=== PATIENT | female | born 1975 ===

== ENCOUNTER → 2019-11-03 13:06 | Outpatient (BNVA) | payer OTHER, SELFPAY | PROVIDERS: Visit Provider Obstetrics & Gynecology | DX: N92.0 Excessive and frequent menstruation with regular cycle (principal) | CPT/HCPCS: 76830 ==

== ENCOUNTER → 2019-11-04 10:34 | Outpatient (BNVA) | payer OTHER, SELFPAY | PROVIDERS: Visit Provider Obstetrics & Gynecology | DX: N92.0 Excessive and frequent menstruation with regular cycle (principal) | CPT/HCPCS: 88305 ==

== ENCOUNTER 2020-03-28 19:01 | Emergency (ER) | payer OTHER, SELFPAY ==
[2020-03-28 19:07] VITALS: BP 144/85; PULSE 61; RESP 18; TEMP 36.7; O2SAT 96; BMI 38.4
--- NOTE | 2020-03-28 19:09 | ECG_ITS ---
[facility] Test Date: 2020-03-28 Pat Name: Ana Lilia Gonzalez Department: Room: Gender: Female Community Development Technician: : 1975 Requested By: Ann-Marie Varela Order Number: [id number] Haley MD: Mor Chavez M.D. Measurements Intervals [place] Rate: 64 P: 34 SD: 129 QRS: 37 QRSD: 103 T: 18 QT: 382 QTc: 395 Interpretive Statements SINUS RHYTHM No previous ECG available for comparison Electronically Signed On 03-29-2020 20:19:10 CDT by Mor Chavez M.D. [id number]
--- NOTE | 2020-03-28 19:25 | ED_ITS ---
HPI - Head Injury General: Chief complaint: Head Injury Stated complaint: loc Time Seen by Provider: 03/28/20 19:25 History of Present Illness: HPI Narrative: Patient is a 44-year-old female comes to the ED with a head injury. Patient says she was washing dishes and lifted her head up and her head hit the cabinet. She describes feeling out of it for a few minutes but did not have any loss of consciousness. She also described feeling off balance after she hit her head. Patient took Tylenol before coming to the ED. Endorses headache. Associated symptoms: Deny nausea, neck pain or vomiting Review of Systems Const: Denies: fever(s), chills or fatigue Eyes: Denies: change in vision or eye discomfort ENMT: Denies: throat pain, odynophagia, nasal discharge or nasal congestion Card: Denies: chest pain, palpitations, edema, swelling of feet/ankles, dyspnea on exertion or orthopnea Resp: Denies: dyspnea, productive cough or non-productive cough GI: Denies: abdominal pain, nausea, vomiting, diarrhea, constipation or h ematochezia : Denies: flank pain, dysuria or hematuria Musc: Denies: neck pain, back pain or extremity swelling Skin/Breast: Denies: rash or new lesions Neuro: Reports: headache(s) and dizziness (episodic after injury, but has since resolved.); Denies: numbness in extremities or weakness in extremities [facility] Female Reproductive History: Date of last menstrual period: 02/28/20 Physical Exam Const: COMMON NORMALS: no acute distress, patient oriented x3, healthy appearing and alert GENERAL APPEARANCE: cooperative and comfortable HENMT: COMMON NORMALS: normocephalic HEAD & SCALP: normocephalic; no Esquivel's sign and no raccoon eyes FACE & SINUS: normal facial exam; no ecchymosis and no edema MOUTH: Normal oral and palatal mucosa present THROAT: posterior oropharynx normal and uvula midline Eye: COMMON NORMALS: Equal, round and reactive pupils present, EOMs intact bilaterally, conjunctivae normal and normal visual mooney by confrontation PERIORBITAL: periorbital findings normal CONJUNCTIVA: Yes conjunctivae normal PUPIL: Yes Equal, round and reactive pupils present Neck/C-Spine: COMMON NORMALS: supple GENERAL: Yes normal visual inspection Resp: COMMON NORMALS: normal respiratory effort, No retractions, No use of accessory muscles and clear to auscultation bilaterally AUSCULTATION: clear to auscultation bilaterally Cardio: COMMON NORMALS: regular rate, regular rhythm, S1 normal heart sound present, S2 normal heart sound present, No gallops present (Cardio), No clicks present (Cardio), No murmurs present (Cardio) and Peripheral pulses 2+ throughout RATE: regular rate RHYTHM: regular rhythm HEART SOUNDS: S1 normal heart sound present and S2 normal heart sound present PERIPHERAL PULSES: Peripheral pulses 2+ throughout GI: COMMON NORMALS: Normal to inspection, nondistended, normoactive bowel sounds present, Soft to palpation, non-tender and no masses PALPATION: Yes Soft to palpation : COMMON NORMALS: Yes no CVA tenderness BLADDER/KIDNEY EXAM: Yes no CVA tenderness Back/Pelvis: COMMON NORMALS: no CVA tenderness Extremity: COMMON NORMALS: normal to inspection Neuro: COMMON NORMALS: patient oriented x3, CN's II-XII intact bilaterally, moves all extremities, no focal motor deficits and no sensory deficits noted SENSORIUM/ORIENTATION: Yes alert SENSORY EXAM: Yes extremities (intact) MOTOR EXAM: 5/5 motor strength present throughout Skin: COMMON NORMALS: no rashes or lesions noted GENERAL SKIN EXAM: no rashes or lesions noted and dry skin Course Vital Signs: Vital signs: Vital Signs Temperature 98.1 F 03/28/20 19:07 Pulse Rate 61 03/28/20 19:07 Respiratory Rate 18 03/28/20 19:07 Blood Pressure 144/85 03/28/20 19:07 Pulse Oximetry 96 03/28/20 19:07 MDM - Head Injury MDM Narrative: Medical decision making narrative: Patient is a 44-year-old female who comes to the ED after head injury. Patient hit head on cabinet denies any loss of consciousness but but felt off balance for a little while after injury. Endorses a headache. Physical and neuro exam is completely normal patient has no neurological deficits. CT of the head was performed and showed no acute findings. Patient was discharged and told to follow-up with PCP in 7 to 10 days for reevaluation. Return to ED precautions given. Take Tylenol or ibuprofen for any headache or pain. Patient understood and agreed with plan. Imaging Data^: CT Head: Attestation: I personally reviewed and interpreted this imaging study as follows: Radiologist's impression: [facility] [address] [place] [address] CT Scan Report Signed Patient: Ana Lilia Gonzalez Unit #: [id number] : 1975 Age/Sex: 44 / F ADM Date: 03/28/20 Loc: ER Room/Bed: Attending Dr: Ordering Provider/Ordering MD: Juan Manuel Curry Date of Service: 03/28/20 Procedure(s): CT head wo con* [id number] Accession Number(s): [id number] Report Number: [id number] PROCEDURE INFORMATION: Exam: CT Head Without Contrast Exam date and time: 03/28/2020 8:02 PM Age: 44 years old Clinical indication: Pain; Dizziness; Headache; Patient HX: Hit head on a desk; Additional info: Head injury TECHNIQUE: Imaging protocol: Computed tomography of the head without contrast. Radiation optimization: All CT scans at this facility use at least one of these dose optimization techniques: automated exposure control; mA and/or kV adjustment per patient size (includes targeted exams where dose is matched to clinical indication); or iterative reconstruction. COMPARISON: No relevant prior studies available. RADIATION DOSE METRICS: Total DLP (mGy-cm): 901.44 FINDINGS: Brain: Normal. No hemorrhage. Unremarkable white matter. No mass effect. Ventricles: Normal. No ventriculomegaly. Bones/joints: Unremarkable. No acute fracture. Sinuses: Visualized sinuses are unremarkable. No fluid levels. Mastoid air cells: Visualized mastoid air cells are well aerated. Soft tissues: Unremarkable. CT/CT head wo con* [id number] IMPRESSION: No acute intracranial abnormality. Radiation Dose CTDIVOL = (mGy): DLP = 901.44 (mGy-cm) Dictated By: Reno Duval Signed By: Reno Duval Signed Date/Time: 2048 DD/ 46 Discharge Plan Discharge Patient Disposition: Home Clinical Impression: Head injury, acute, without loss of consciousness Qualifiers: Encounter type: initial encounter Qualified Code(s): S09.90XA - Unspecified injury of head, initial encounter Condition: Stable Prescriptions: No Action Junel FE 1.5/30 (28) 1.5 mg-30 mcg (21)/75 mg (7) tablet 1 tab PO DAILY RF: 0 chlorzoxazone 500 mg tablet 500 mg PO TID RF: 0 iron 325 mg (65 mg iron) Tablet 325 mg PO DAILY RF: 0 metoprolol succinate 25 mg tablet extended release 24 hr 25 mg PO BID RF: 0 naproxen 500 mg tablet 500 mg PO BID RF: 0 topiramate 50 mg tablet 50 mg PO BEDTIME RF: 0 Discharge Orders: Discharge Order (Routine); Ordered 03/28/20 Ordered By: Juan Manuel Curry Discharge Diet: Regular Discharge Activity: Increase activity as tolerated Patient Instructions: Minor Head Injury (ED) Activity Restrictions/Additional Instructions: Follow-up with medical provider as directed in 7-10 days. Take Tylenol or ibuprofen for any pain or headaches. You can apply cold pack on left eye to help with swelling as needed. Return to the ER or your medical provider if condition worsens. Please read and understand discharge instructions. If any questions, please ask. Stand Alone Forms: Work/School Release Discharge Date/Time: 03/28/20 21:37 Coding Level of Care Code ED Conduit Reamer Operator for Dalton Fwd Exam Comprehensive
--- NOTE | 2020-03-28 19:33 | CTR_ITS ---
PROCEDURE INFORMATION: Exam: CT Head Without Contrast Exam date and time: 03/28/2020 8:02 PM Age: 44 years old Clinical indication: Pain; Dizziness; Headache; Patient HX: Hit head on a desk; Additional info: Head injury TECHNIQUE: Imaging protocol: Computed tomography of the head without contrast. Radiation optimization: All CT scans at this facility use at least one of these dose optimization techniques: automated exposure control; mA and/or kV adjustment per patient size (includes targeted exams where dose is matched to clinical indication); or iterative reconstruction. COMPARISON: No relevant prior studies available. RADIATION DOSE METRICS: Total DLP (mGy-cm): 901.44 FINDINGS: Brain: Normal. No hemorrhage. Unremarkable white matter. No mass effect. Ventricles: Normal. No ventriculomegaly. Bones/joints: Unremarkable. No acute fracture. Sinuses: Visualized sinuses are unremarkable. No fluid levels. Mastoid air cells: Visualized mastoid air cells are well aerated. Soft tissues: Unremarkable. CT/CT head wo con* [id number] IMPRESSION: No acute intracranial abnormality. Radiation Dose CTDIVOL = (mGy): DLP = 901.44 (mGy-cm)
== END 2020-03-28 21:37 | disposition home or self-care (01) ==
PROVIDERS: Emergency Provider Physician Assistant
DX: S09.8XXA Other specified injuries of head, initial encounter (principal); W22.09XA Striking against other stationary object, initial encounter
CPT/HCPCS: 12345; 70450; 93005; 99281; 99283

== ENCOUNTER 2020-05-12 12:56 | Outpatient (CLI) | payer OTHER, SELFPAY ==
--- NOTE | 2020-05-12 13:02 | XR_ITS ---
WS: [id number] Cervical spine, 3 views, 05/12/2020 Clinical Data: PAIN IN R HAND Comparison: None. Findings: No compression fractures are seen. The disc heights are normal. There is no prevertebral so ft tissue swelling. The odontoid is unremarkable. The soft tissues of the neck and the lung apices ar e normal. XR/XR cervical spine 3V* [id number] Impression: Negative cervical spine.
== END 2020-05-12 12:57 | disposition home or self-care (01) ==
LOC: RAD 12:56
PROVIDERS: Visit Provider Student in an Organized Health Care Education/Training Program
DX: M79.641 Pain in right hand (principal)
CPT/HCPCS: 72040

== ENCOUNTER → 2021-03-23 10:14 | Outpatient (BNVA) | payer OTHER, SELFPAY | PROVIDERS: PCP Nurse Practitioner Family; Visit Provider Obstetrics & Gynecology | DX: N92.0 Excessive and frequent menstruation with regular cycle (principal); Z12.4 Encounter for screening for malignant neoplasm of cervix | CPT/HCPCS: 88175 ==

== ENCOUNTER 2021-05-21 09:53 | Outpatient (CLI) | payer OTHER, SELFPAY ==
--- NOTE | 2021-05-21 10:04 | USCV_ITS ---
Ana Lilia Gonzalez Age: 45 Gender: F : 1975 Exam Date: 05/21/2021 10:32 Ordering Phys: Lilia Tomlinson PRODUCE PRODUCTION TEAM MEMBER Technologist: Exam Location: [facility] Indication: Mitral valve prolapse BP: 148 / 85 HR: 69 Rhythm: Sinus Technical Quality: Adequate MEASUREMENTS (Male / Female) Normal Values 2D ECHO LV Diastolic Diameter PLAX 5.2 cm 4.2 - 5.9 / 3.9 - 5.3 cm LV Systolic Diameter PLAX 2.5 cm IVS Diastolic Thickness 1.1 cm 0.6 - 1.0 / 0.6 - 0.9 cm IVS Systolic Thickness 1.2 cm LVPW Diastolic Thickness 0.9 cm 0.6 - 1.0 / 0.6 - 0.9 cm LVPW Systolic Thickness 1.0 cm LVOT Diameter 2.1 cm LV Ejection Fraction 2D Teich 73.0 % LV Ejection Fraction MOD 2C 74.9 % LV Ejection Fraction 2C AL 74.0 % LA Diameter 2.6 cm LA Width 3.6 cm LA Height 4.0 cm RA Width 3.6 cm RA Height 4.0 cm Aorta at Sinotubular Diameter 2.2 cm DOPPLER AV Peak Velocity 144.0 cm/s LVOT Peak Velocity 115.0 cm/s AV Area Cont Eq vti 3.1 cm squared AV Area Cont Eq pk 2.7 cm squared MV Area PHT 5.0 cm squared Mitral E to A Ratio 1.1 MV E' Velocity 49.0 cm/s Mitral E to MV E' Ratio 10.1 Mitral E to LV E' Lateral Ratio 9.1 Mitral E to LV E' Septal Ratio 11.4 TR Peak Velocity 157.0 cm/s TR Peak Gradient 9.9 mmHg TV Peak E Velocity 95.0 cm/s Right Atrial Pressure 3.0 mmHg Pulmonary Artery Systolic Pressu 12.9 mmHg FINDINGS Left Ventricle Normal left ventricular size, systolic function and wall thickness, with no regional wall motion abnormalities. Left ventricular ejection fraction is estimated at 65-70 %. Normal diastolic function. Right Ventricle Normal right ventricular size and systolic function. Right ventricular systolic pressure 12.9 mmHg. Right Atrium Normal right atrial size. Left Atrium Normal left atrial size. Mitral Valve Thickened mitral valve. Mild bowing of posterior mitral valve leaflet with no significant prolapse. No mitral valve stenosis. Trace mitral valve regurgitation. Aortic Valve Aortic valve not well visualized. No aortic valve stenosis. No aortic valve regurgitation. Tricuspid Valve Structurally normal tricuspid valve. Trace tricuspid valve regurgitation. Pulmonic Valve Pulmonic valve not well visualized. No pulmonary valve regurgitation. Pericardium No pericardial effusion. Aorta Normal size aortic root and proximal ascending aorta. CONCLUSIONS 1. Normal left ventricular size, systolic function and wall thickness, with no regional wall motion abnormalities. Left ventricular ejection fraction is estimated at 65-70 %. Normal diastolic function. 2. Normal right ventricular size and systolic function. 3. Thickened mitral valve. Mild bowing of posterior mitral valve leaflet with no significant prolapse. Trace mitral valve regurgitation. 4. Normal pulmonary artery pressure. 5. No prior similar studies to compare. Selam Jacobsen MD (Electronically Signed) Final Date: 23 May 2021 19:30 S
== END 2021-05-21 09:54 | disposition home or self-care (01) ==
PROVIDERS: PCP Nurse Practitioner Family; Visit Provider Nurse Practitioner Family
DX: I34.1 Nonrheumatic mitral (valve) prolapse (principal)
CPT/HCPCS: 93306

== ENCOUNTER 2021-08-09 11:07 | Outpatient (CLI) | payer OTHER, SELFPAY ==
[2021-08-09 11:15] VITALS: BMI 39.3
--- NOTE | 2021-08-09 11:15 | ECG_ITS ---
[facility] Test Date: 2021-08-09 Pat Name: Ana Lilia Gonzalez Department: Room: Gender: Female Applications Processor: Dolores Maria : 1975 Requested By: Moi Adams Order Number: [id number] Haley MD: Moi Adams M.D. Interpretive Statements NAME OF STUDY: TREADMILL STRESS TEST INDICATION: Chest Pain, PROCEDURE: At the baseline, the patient's blood pressure was 139/87 with a heart rate of 63. The baseline electrocardiogram showed normal sinus rhythm with normal ST-Ts. Sinus arrhythmia. The patient exercised for 8 minutes and 30 seconds on a standard Meir protocol. Patient attained a maximum heart rate of 159 beats per minute(90% of the maximum predicted heart rate) with a blood pressure at the peak exercise of 186/115 mm Hg. The EKG at the peak exercise revealed no significant changes. Patient did [not have any chest pain . Occasional supraventricular ectopics were noted during the exercise During the recovery phase, there were no new changes. Blood pressure at the end of the recovery phase was 151/74 mm Hg with a heart rate of 84 per minute. CONCLUSION: 1. Normal EKG response to treadmill exercise 2. No exercise-induced chest pain . Occasional supraventricular ectopics with the exercise 3. Fair exercise tolerance, attained a maximum of 10.2 METs Electronically Signed On 08-10-2021 12:27:01 NAPHTHOL SOAPING MACHINE OPERATOR by Moi Adams M.D. [id number]
[2021-08-09 13:18] VITALS: BP 151/74; PULSE 83
== END 2021-08-09 11:08 | disposition home or self-care (01) ==
LOC: CDL 11:09
PROVIDERS: PCP Nurse Practitioner Family; Visit Provider Internal Medicine Cardiovascular Disease
DX: R07.9 Chest pain, unspecified (principal)
CPT/HCPCS: 93017